=== PATIENT | male | born 1990 | race Caucasian/White ===

== ENCOUNTER 2018-12-29 11:26 | Emergency (ER) | payer MEDICAID ==
[~2018-12-29] VITALS: Ht 167.6 cm; Wt 90.5 kg
[2018-12-29 12:03] VITALS: BP 142/71; PULSE 76; RESP 20; Ht 167.6 cm; Wt 90.5 kg
--- NOTE | 2018-12-29 16:23 | ERD ---
ER Documentation Chief Complaint Chief Complaint Complains of a throat pain x 3 weeks ROS All systems reviewed and are negative except as per history of present illness. Allergies Allergies: Coded Allergies: No Known Allergy (Unverified , 12/29/18) PMhx/Soc Medical and Surgical Hx: pt denies Medical Hx, pt denies Surgical Hx Physical Exam Vitals Vital Signs Date Temp Pulse Resp B/P (MAP) Pulse Ox O2 O2 Flow FiO2 Time Delivery Rate 12/29/18 98.4 76 20 142/71 98 12:03 (94) Physical Exam Const: No acute distress Head: Atraumatic Eyes: Normal Conjunctiva ENT: Normal External Ears, Nose and Mouth. Neck: Full range of motion. No meningismus. Resp: Clear to auscultation bilaterally Cardio: Regular rate and rhythm, no murmurs Abd: Soft, non tender, non distended. Normal bowel sounds Skin: No petechiae or rashes Back: No midline or flank tenderness Ext: No cyanosis, or edema Neur: Awake and alert Psych: Normal Mood and Affect Result Diagram: 12/29/18 1359 12/29/18 1359 Results 24 hrs Laboratory Tests Test 12/29/18 13:59 White Blood Count 6.5 10^3/ul Red Blood Count 4.98 10^6/ul Hemoglobin 15.1 g/dl Hematocrit 44.1 % Mean Corpuscular Volume 88.6 fl Mean Corpuscular Hemoglobin 30.3 pg Mean Corpuscular Hemoglobin Concent 34.2 g/dl Red Cell Distribution Width 11.7 % Platelet Count 284 10^3/UL Mean Platelet Volume 11.0 fl Immature Granulocytes % 0.200 % Neutrophils % 45.1 % Lymphocytes % 42.3 % Monocytes % 8.2 % Eosinophils % 3.7 % Basophils % 0.5 % Nucleated Red Blood Cells % 0.0 /100WBC Immature Granulocytes # 0.010 10^3/ul Neutrophils # 2.9 10^3/ul Lymphocytes # 2.7 10^3/ul Monocytes # 0.5 10^3/ul Eosinophils # 0.2 10^3/ul Basophils # 0.0 10^3/ul Nucleated Red Blood Cells # 0.0 10^3/ul Sodium Level 143 mmol/L Potassium Level 4.3 mmol/L Chloride Level 102 mmol/L Carbon Dioxide Level 28 mmol/L Anion Gap 13 Blood Urea Nitrogen 15 mg/dl Creatinine 0.92 mg/dl Est Glomerular Filtrat Rate mL/min > 60 mL/min Glucose Level 99 mg/dl Calcium Level 9.8 mg/dl Total Bilirubin 0.9 mg/dl Direct Bilirubin 0.00 mg/dl Indirect Bilirubin 0.9 mg/dl Aspartate Amino Transf (AST/SGOT) 27 IU/L Alanine Aminotransferase (ALT/SGPT) 37 IU/L Alkaline Phosphatase 77 IU/L Total Protein 8.2 g/dl Albumin 4.7 g/dl Globulin 3.50 g/dl Albumin/Globulin Ratio 1.34 Thyroid Stimulating Hormone (TSH) 0.965 MIU/L Free Thyroxine 0.96 ng/dl Thyroxine (T4) 6.8 ug/dl Departure Diagnosis: Primary Impression: Throat pain Condition: Fair Patient Instructions: Self-Care for Sore Throats Referrals: [facility] YOU HAVE RECEIVED A MEDICAL SCREENING EXAM AND THE RESULTS INDICATE THAT YOU DO NOT HAVE A CONDITION THAT REQUIRES URGENT TREATMENT IN THE EMERGENCY DEPARTMENT. FURTHER EVALUATION AND TREATMENT OF YOUR CONDITION CAN WAIT UNTIL YOU ARE SEEN IN YOUR DOCTORS OFFICE WITHIN THE NEXT 1-2 DAYS. IT IS YOUR RESPONSIBILITY TO MAKE AN APPOINTMENT FOR FOLOW-UP CARE. IF YOU HAVE A PRIMARY DOCTOR --you should call your primary doctor and schedule an appointment IF YOU DO NOT HAVE A PRIMARY DOCTOR YOU CAN CALL OUR PHYSICIAN REFERRAL HOTLINE AT IF YOU CAN NOT AFFORD TO SEE A PHYSICIAN YOU CAN CHOSE FROM THE FOLLOWING [facility] [address] [facility] [facility] [address] [facility] [address] [facility] [facility] [address] [facility]. [facility] [address] [facility] [facility]. [address] Additional Instructions: Call your primary care doctor TOMORROW for an appointment during the next 1-2 days.See the doctor sooner or return here if your condition worsens before your appointment time. ALVINO BOYD DO Dec 29, 2018 16:23
== END 2018-12-29 17:22 | disposition home or self-care (01) ==
LOC: FTE 11:26
DX: R07.0 Pain in throat (principal)
CPT/HCPCS: 70360; 80053; 84436; 84439; 84443; 85025; Z7502

== ENCOUNTER 2019-02-11 10:32 | Emergency (ER) | payer SELFPAY ==
[~2019-02-11] VITALS: Ht 180.3 cm; Wt 91.3 kg
[2019-02-11 10:33] VITALS: BP 124/72; PULSE 65; RESP 18; Ht 180.3 cm; Wt 91.3 kg
[2019-02-11] MEDS ORDERED: NAPR-985 PO (11:26)
[2019-02-11] MEDS ORDERED: FAMO-96 PO (11:26)
--- NOTE | 2019-02-11 14:21 | ERD ---
ER Documentation Chief Complaint Chief Complaint throat pain, cough and CWP with cough x 1 week HPI 28-year-old male presenting with sore throat and chest wall pain with coughing. Patient had a dry cough for the last week. Denies any hemoptysis or pleuritic chest pain. Denies fevers. Has not taken medications for symptoms. Denies other medical problems. NKDA. Surgical history denies. Social history denies ROS All systems reviewed and are negative except as per history of present illness. Medications Home Meds Active Scripts Naproxen* (Naprosyn*) 500 Mg Tablet, 500 MG PO BID PRN for PAIN AND/OR INFLAMMATION, #30 TAB Prov:KAMILAH SCOTT PA-C 02/11/19 Famotidine* (Pepcid*) 20 Mg Tablet, 20 MG PO BID for 4 Days, #30 TAB Prov:KAMILAH SCOTT PA-C 02/11/19 Allergies Allergies: Coded Allergies: No Known Allergy (Unverified , 02/11/19) PMhx/Soc Medical and Surgical Hx: pt denies Medical Hx, pt denies Surgical Hx Hx Alcohol Use: No Hx Substance Use: No Hx Tobacco Use: No FmHx Family History: No diabetes, No coronary disease, No other Physical Exam Vitals Vital Signs Date Temp Pulse Resp B/P (MAP) Pulse Ox O2 O2 Flow FiO2 Time Delivery Rate 02/11/19 98.3 65 18 124/72 97 10:33 (89) Physical Exam GENERAL: The patient is well-appearing, well-nourished, in no acute distress HEENT: Atraumatic. Conjunctivae are pink. Pupils equal, round, and reactive to light. There is no scleral icterus. Tympanic membranes clear bilaterally. Oropharynx clear. NECK: C-spine is soft and supple. There is no meningismus. There is no cervical lymphadenopathy. CHEST: Clear to auscultation bilaterally. There are no rales, wheezes or rhonchi. HEART: Regular rate and rhythm. No murmurs, clicks, rubs or gallops. Procedures/MDM MDM: 28-year-old male presenting with sore throat. I have low suspicion for strep throat. Patient's exam is more concerning for GERD and acid reflux ca using him pain to his sore throat. Patient is discharged with strict ER precautions. Patient is told symptoms change or worsen to return immediately to the ER. All questions answered at discharge Departure Diagnosis: Primary Impression: Sore throat Condition: Stable Patient Instructions: Self-Care for Sore Throats Referrals: [facility] YOU HAVE RECEIVED A MEDICAL SCREENING EXAM AND THE RESULTS INDICATE THAT YOU DO NOT HAVE A CONDITION THAT REQUIRES URGENT TREATMENT IN THE EMERGENCY DEPARTMENT. FURTHER EVALUATION AND TREATMENT OF YOUR CONDITION CAN WAIT UNTIL YOU ARE SEEN IN YOUR DOCTORS OFFICE WITHIN THE NEXT 1-2 DAYS. IT IS YOUR RESPONSIBILITY TO MAKE AN APPOINTMENT FOR FOLOW-UP CARE. IF YOU HAVE A PRIMARY DOCTOR --you should call your primary doctor and schedule an appointment IF YOU DO NOT HAVE A PRIMARY DOCTOR YOU CAN CALL OUR PHYSICIAN REFERRAL HOTLINE AT IF YOU CAN NOT AFFORD TO SEE A PHYSICIAN YOU CAN CHOSE FROM THE FOLLOWING [facility] [address] [facility] [address] [facility] [address] [facility] [address] [facility] [address] [facility] [facility] [address] Additional Instructions: FOLLOW UP WITH YOUR PRIMARY CARE PHYSICIAN TOMORROW.Return to this facility if you are not improving as expected. KAMILAH SCOTT PA-C February 11, 2019 14:21
== END 2019-02-11 11:38 | disposition home or self-care (01) ==
LOC: FTE 10:32
DX: J02.9 Acute pharyngitis, unspecified (principal)
CPT/HCPCS: 99283

== ENCOUNTER 2019-08-20 23:32 | Emergency (ER) | payer SELFPAY ==
[~2019-08-20] VITALS: Ht 180.3 cm; Wt 87.7 kg
[~2019-08-20 23:32] MED LIST: FAMO-96 PO; MAG-19 PO; NAPR-985 PO; PANT40TA3 PO
[2019-08-20 23:39] VITALS: Ht 180.3 cm; Wt 87.7 kg
[2019-08-21] MEDS ORDERED: PANTOPRAZOLE 40 MG INJ IV ONE (02:00)
[2019-08-21 02:50] VITALS: BP 128/82; PULSE 88; RESP 18
== END 2019-08-21 02:51 | disposition home or self-care (01) ==
LOC: E/R 23:32
DX: R10.84 Generalized abdominal pain (principal); R06.02 Shortness of breath
CPT/HCPCS: 96374; 99284; C9113